=== PATIENT | male | born 1965 | race Caucasian/White ===

== ENCOUNTER 2019-05-31 16:40 | Emergency (ER) | payer OTHER, SELFPAY ==
[2019-05-31 16:43] VITALS: BP 160/71; PULSE 97; RESP 14; TEMP 36.4; O2SAT 96
--- NOTE | 2019-05-31 17:20 | W.ED.GENAD ---
Discharge Plan Disposition Patient Disposition: HOME Condition: Stable Discharge Details Chief Complaint: Orthopedic Clinical Impression: Chronic pain in right shoulder, Cervical myofascial strain Primary Care Provider: None,None ED Provider: Laurie Todd Home Meds and New Rx's Prescriptions: New ibuprofen 600 mg tablet 600 mg PO Q6H PRN (Reason: pain) Qty: 20 RF: 0 methocarbamol 750 mg tablet 750 mg PO QID PRN (Reason: muscle spasm) Qty: 10 RF: 0 Discontinued ibuprofen 200 mg Capsule 800 mg PO PRN PRNRF: 0 Discharge Instructions Instructions: Cervical Strain (ED), Shoulder Pain (ED) Additional Instructions: Alternate ice and heat to the right neck several times daily for 20 minutes at a time. Apply ice to right shoulder several times daily for 20 minutes at a time. Take the Motrin as needed and directed for pain. Take Tylenol as needed directed for pain. Take the muscle relaxer as directed for pain and muscle spasm. You were given a referral for physical therapy. Follow-up as directed. You will receive a call from care management regarding a follow-up appointment with a primary care doctor. Return to the emergency department if you develop any worsening or new concerning symptoms. Stand Alone Forms: Physical Therapy Referral Discharge Data Discharge Date/Time-TO BE ENTERED AT DEPARTURE: 05/31/19 17:51 Discharge Physician: Laurie Todd Medical Decision Making 53-year-old male with a history of right shoulder adhesive capsulitis who presents with chronic right shoulder pain for the past 6 months, becoming increasingly worse with range of motion and unable to fully abduct or flex shoulder. Denies any chest pain or midline neck pain. Differential diagnosis includes arthritis, right shoulder strain, right shoulder tendinitis, adhesive capsulitis, rotator cuff tear. Denies any new injury or fall does not appear consistent with fracture. Upon exam, he appears to use his trapezius muscle to lift his shoulder and right upper extremity. This would explain his pain in his right cervical neck and right trapezius. He is neurovascular intact but has limited abduction and flexion at the right shoulder, with limitation to approximately 60 degrees. He has been taking Tylenol and Motrin. He was given a dose of muscle relaxer here and prescription for home. He is instructed alternate Tylenol Motrin, ice, heat, and was given a referral for physical therapy and to follow-up with orthopedics if symptoms do not improve or worsen for reevaluation and possible MRI. HPI General Mode of arrival: ambulatory. Date/Time Provider Initiated Documentation: 05/31/19 16:53. Limitations to Documentation: no limitations. Information obtained by: patient. HPI Narrative: Patient is a 53-year-old male who presents with right shoulder pain for the past 6 months. Patient states he has had previous right shoulder pain for which she has received a cortisone injection and diagnosed with a frozen shoulder. He denies any new injury. 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 He denies any fever or chest pain. He states he has been taking Motrin and Tylenol [id number] but has limitation of lifting his arm up in front and to his side. Related Data Home Medications Medication Instructions Recorded Confirmed ibuprofen 600 mg PO Q6H PRN #20 tab 05/31/19 methocarbamol 750 mg PO QID PRN #10 tab 05/31/19 Previous Rx's Medication Instructions Recorded ibuprofen 600 mg PO Q6H PRN #20 tab 05/31/19 methocarbamol 750 mg PO QID PRN #10 tab 05/31/19 Allergies Allergy/AdvReac Type Severity Reaction Status Date / Time amoxicillin Allergy Unverified 05/31/19 17:06 ketorolac [From Toradol] AdvReac Unverified 05/31/19 17:06 General Stated Complaint: Orthopedic KYUNG: 4 Review of Systems Review of Systems All systems reviewed & are unremarkable except as noted in HPI and below Constitutional Reports as per HPI, Denies chills and Denies fever(s) Eyes Denies blurry vision ENT Denies dizziness, Denies sore throat and Denies throat swelling Cardiovascular Denies chest pain and Denies dyspnea Respiratory Denies cough and Denies dyspnea Gastrointestinal Denies abdominal pain, Denies diarrhea and Denies vomiting Genitourinary Denies hematuria and Denies dysuria Musculoskeletal Denies back pain and Denies numbness Comments: R shoulder pain and neck pain Integumentary/Breasts Denies lesions and Denies rash Neurologic Denies dizziness, Denies focal weakness and Denies numbness Allergic/Immunologic Denies throat swelling PFSH Social History Do you feel safe at home: Yes Do you feel safe in your relationship?: Yes Exam Const General: cooperative, healthy appearing and no acute distress HENMT Head: normal to inspection Mouth: oral mucosae normal Eyes General: appearance normal, both eyes and all related structures Neck Neck: normal visual inspection Resp Effort & Inspection: normal respiratory effort and able to speak in complete sentences Cardio Rate: regular rate Skin General skin exam: no rashes or lesions noted Neuro General: alert, awake and oriented x3 Motor: muscle tone normal throughout Other: Motor/sensory grossly intact right upper extremity. 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 Diminished abduction due to pain. Normal muscle strength of biceps, triceps. Extrem Other: Pain in right anterior shoulder and right trapezius with abduction, flexion and external rotation. Limited abduction and flexion due to pain and limited to approximately 60 degrees. No bony deformity, edema, erythema or ecchymosis. Right radial and ulnar pulses intact. Cap refill less than 2 seconds. Psych Appearance: grossly normal Affect: normal affect Course Vital Signs Temperature 97.5 F L 05/31/19 16:43 Pulse 97 H 05/31/19 16:43 Respiratory Rate 14 05/31/19 16:43 Blood Pressure 160/71 H 05/31/19 16:43 Pulse Oximetry 96 05/31/19 16:43 Temperature 97.5 F L 05/31/19 16:43 Temperature Source Temporal Artery Scan 05/31/19 16:43 Pulse 97 H 05/31/19 16:43 Respiratory Rate 14 05/31/19 16:43 Respiratory Effort Non-Labored 05/31/19 16:45 Blood Pressure 160/71 H 05/31/19 16:43 Blood Pressure Position Sitting 05/31/19 16:43 Pulse Oximetry 96 05/31/19 16:43 Oxygen Delivery Method Room Air 05/31/19 16:43 Oxygen Flow Rate 0 05/31/19 16:43 Pain Level 8 05/31/19 16:43
[2019-05-31] MEDS: Methocarbamol 500 MG TAB PO (17:47)
== END 2019-05-31 17:51 | disposition home or self-care (01) ==
PROVIDERS: Emergency Provider Physician Assistant
DX: M25.511 Pain in right shoulder (principal); G89.29 Other chronic pain; S16.1XXA Strain of muscle, fascia and tendon at neck level, initial encounter; X58.XXXA Exposure to other specified factors, initial encounter; M75.01 Adhesive capsulitis of right shoulder
CPT/HCPCS: 99283